=== PATIENT | male | born 1945 ===

== ENCOUNTER 2020-12-29 10:45 | Inpatient (IN) | payer OTHER ==
[~2020-12-29] VITALS: Ht 30.5 cm; Wt 5.0 kg
[2020-12-29] MEDS ORDERED: LISI PO (12:15)
[2020-12-29] MEDS ORDERED: FORTAMET500 MG PO (12:15)
[2020-12-29] MEDS ORDERED: GLIPIZI PO (12:15)
[2020-12-29] MEDS ORDERED: SIMVASTATIN PO (12:16)
[2021-01-03] MEDS ORDERED: GLIPIZIDE5 MG (14:05)
[2021-01-03] MEDS ORDERED: LISINOPRIL10 MG (14:05)
[2021-01-03] MEDS ORDERED: SIMVASTATIN40 MG (14:05)
== END 2021-01-06 17:38 | disposition home or self-care (01) | DRG 331 ==
LOC: O/R 01-03 08:22 → SURH 01-03 09:15
PROVIDERS: ADMIT Colon & Rectal Surgery; ATTEND Colon & Rectal Surgery
PROC: 0DTP4ZZ Resection of Rectum, Percutaneous Endoscopic Approach (ICD-10-PCS; 2021-01-03)
PROC: 07BB4ZZ Excision of Mesenteric Lymphatic, Percutaneous Endoscopic Approach (ICD-10-PCS; 2021-01-03)
PROC: 0DBN4ZZ Excision of Sigmoid Colon, Percutaneous Endoscopic Approach (ICD-10-PCS; principal; 2021-01-03 09:15)
DX: C19 Malignant neoplasm of rectosigmoid junction (principal); I10 Essential (primary) hypertension; E13.9 Other specified diabetes mellitus without complications

== ENCOUNTER 2021-03-08 11:10 | Day surgery (SDC) | payer OTHER ==
[~2021-03-08 11:10] MED LIST: COZAAR25 MG PO; FORTAMET500 MG PO; GLIPIZI PO; GLIPIZIDE5 MG; LISI PO; LISINOPRIL10 MG; METFORMIN HCL500 M3 PO; SIMVASTATIN PO; SIMVASTATIN40 MG
== END 2021-03-08 19:10 | disposition home or self-care (01) ==
LOC: CIR.AMB 11:10
PROVIDERS: ATTEND Colon & Rectal Surgery
DX: C20 Malignant neoplasm of rectum (principal); Z20.822 Contact with and (suspected) exposure to COVID-19
CPT/HCPCS: 36561; C1751